=== PATIENT | male | born 1985 | race Caucasian/White ===

== ENCOUNTER → 2018-04-18 | Outpatient (CLI) | payer OTHER ==
--- NOTE | 2018-04-18 08:44 | RADIOLOGY IMAGING REPORT ---
[place] [facility] [place] NAME: Bro Huerta : 1985 MR: [id number] V: [id number] EXAM DATE: ORDERING PHYSICIAN: BRAD LOGAN TECHNOLOGIST: Location: [facility] Patient: Bro Huerta : 1985 Visit/Account:[id number] Date of Sevice: 04/18/2018 CHEST PA LAT HISTORY: Productive cough. COMPARISON: None available. FINDINGS: Lines/tubes: None. Lungs/pleura: Negative. Heart: Negative. Mediastinum: Negative. Bony structures/body wall: Negative. IMPRESSION: No acute cardiopulmonary process. Report Dictated By: Lon Wilkes MD at 04/18/2018 8:38 AM Report E-Signed By: Lon Wilkes MD at 04/18/2018 8:39 AM WSN:[id number]
== END ==
LOC: RAD 08:15
PROVIDERS: ATTEND Family Medicine
DX: J20.9 Acute bronchitis, unspecified (principal)
CPT/HCPCS: 71046